=== PATIENT | female | born 1970 | race Caucasian/White ===

== ENCOUNTER 2018-01-18 09:27 | Emergency (ER) | payer OTHER ==
[~2018-01-18] VITALS: Ht 162.6 cm; Wt 116.0 kg
[~2018-01-18 09:27] MED LIST: LEVO200T PO; LISI-170 PO; OMEP-110 PO
[2018-01-18 09:37] VITALS: BP 166/88
[2018-01-18] MEDS ORDERED: METHOCARBAMOL 750 MG TABLET PO ONE (10:30)
[2018-01-18] MEDS ORDERED: KETOROLAC 30 MG/1 ML IM ONE (10:30)
[2018-01-18] MEDS ORDERED: KETOROLAC 30 MG/1 ML ONE (10:42)
[2018-01-18] MEDS ORDERED: METHOCARBAMOL 750 MG TABLET ONE (10:42)
[2018-01-18 10:44] LABS: BASOPHILS # (AUTO) 0.09 x10^3/uL (0-0.1); BASOPHILS % (AUTO) 1 % (0-1); EOSINOPHILS # (AUTO) 0.25 x10^3/uL (0-0.4); EOSINOPHILS % (AUTO) 2 % (1-7); LYMPHOCYTES # (AUTO) 2.37 x10^3/uL (1-3.4); LYMPHOCYTES % (AUTO) 21 % (22-44); MD NO; MEAN CORPUSCULAR HEMOGLOBIN 32.9 pg (27.0-34.8); MEAN CORPUSCULAR HGB CONC 34.1 g/dL (32.4-35.8); MEAN CORPUSCULAR VOLUME 96.4 fL (80-100); MEAN PLATELET VOLUME 9.3 fL (7.4-10.4); MONOCYTES # (AUTO) 0.48 x10^3/uL (0.2-0.8); MONOCYTES % (AUTO) 4 % (2-9); NEUTROPHILS # (AUTO) 8.09 x10^3/uL (1.8-6.8); NEUTROPHILS % (AUTO) 72 % (42-75); PLATELET COUNT 318 x10^3/uL (130-400); RED BLOOD COUNT 4.59 x10^6/uL (3.82-5.3); RED CELL DISTRIBUTION WIDTH 12.8 % (9.6-15.2)
[2018-01-18 10:56] LABS: ALBUMIN 3.9 g/dL (3.4-5.0); ANION GAP 8 mmol/L (5-15); CALCIUM 8.6 mg/dL (8.5-10.1); CHLORIDE 106 mmol/L (98-107); CREATININE 0.91 mg/dL (0.55-1.02)
== END 2018-01-18 11:33 | disposition home or self-care (01) ==
LOC: ED 11:30
DX: M54.41 Lumbago with sciatica, right side (principal); K21.9 Gastro-esophageal reflux disease without esophagitis; I10 Essential (primary) hypertension
CPT/HCPCS: 36415; 72110; 80048; 82040; 85025; 96372; 99285; J1885

== ENCOUNTER 2019-12-12 07:01 | Emergency (ER) | payer OTHER ==
[~2019-12-12] VITALS: Ht 160 cm; Wt 115.8 kg
--- NOTE | 2019-12-12 08:01 | NUR ---
CLINICAL QUALITY ASSURANCE ASSOCIATE: PT AMBULATORY WITH STEADY GAIT TO ROOM. PT GIVEN GOWN AND ASKED TO CHANGE. FRIENDS WITH PT,.
--- NOTE | 2019-12-12 08:09 | NUR ---
first contact with pt. pt C/O:"I have pneumonia, I was at [facility] on Thursday. They said to come back if my symptoms got worse. My symptoms got worse last night. I had flecked blood in my sputum last night." Pt is on albuterol, amoxicillin-clauvulanate, azithromycin, prednisone, promethazine-dextromethorphan. pt's aox4. resps even and unlabored. bp/spo2 monitors in place. call light within reach. family at bedside.
[2019-12-12] MEDS ORDERED: ACETAMINOPHEN 500 MG TABLET ONE (08:44)
--- NOTE | 2019-12-12 08:55 | NUR ---
piv est on L hand with no complications. pt tolerated well.
--- NOTE | 2019-12-12 08:57 | NUR ---
pt medicated per emar. pt tolerated well. ns infusing at this time.
[2019-12-12] MEDS ORDERED: ACETAMINOPHEN 500 MG TABLET PO ONE (09:00)
[2019-12-12] MEDS ORDERED: SODIUM CHLORIDE 0.9% 1,000ML IVBOLUS ONE (09:00)
[2019-12-12 09:21] LABS: BASOPHILS # (AUTO) 0.09 x10^3/uL (0-0.1); BASOPHILS % (AUTO) 1 % (0-1); EOSINOPHILS # (AUTO) 0.35 x10^3/uL (0-0.4); EOSINOPHILS % (AUTO) 4 % (1-7); LYMPHOCYTES # (AUTO) 1.34 x10^3/uL (1-3.4); LYMPHOCYTES % (AUTO) 14 % (22-44); MD NO; MEAN CORPUSCULAR HGB CONC 34.4 g/dL (32.4-35.8); MEAN PLATELET VOLUME 8.4 fL (7.4-10.4); MONOCYTES # (AUTO) 0.75 x10^3/uL (0.2-0.8); MONOCYTES % (AUTO) 8 % (2-9); NEUTROPHILS # (AUTO) 7.12 x10^3/uL (1.8-6.8); NEUTROPHILS % (AUTO) 74 % (42-75); PLATELET COUNT 342 x10^3/uL (130-400); RED BLOOD COUNT 4.02 x10^6/uL (3.82-5.3)
[2019-12-12 09:30] LABS: ALBUMIN 3.1 g/dL (3.4-5.0); ANION GAP 8 mmol/L (5-15); CALCIUM 8.7 mg/dL (8.5-10.1); CHLORIDE 106 mmol/L (98-107)
[2019-12-12] MEDS ORDERED: CEFTRIAXONE PMX 1GM/50ML 50 ML IV ONE (09:30)
[2019-12-12 09:31] LABS: CREATININE 0.73 mg/dL (0.55-1.02)
[2019-12-12 09:35] LABS: RAPID INFLUENZA A Negative (Negative)
[2019-12-12 09:36] LABS: RAPID INFLUENZA B Negative (Negative)
--- NOTE | 2019-12-12 09:44 | NUR ---
yoselin confilmed pt doesn't have allergy of cephalexin. pt states "i have nausea if i take it." yoselin ok'd to give abx.
[2019-12-12] MEDS ORDERED: CEFTRIAXONE PMX 1GM/50ML 50 ML ONE (09:46)
--- NOTE | 2019-12-12 09:51 | NUR ---
pt amb to br with steady gait.
--- NOTE | 2019-12-12 09:57 | NUR ---
abx infusing at this time after blood culture x 2. pt tolerated well.
[2019-12-12 11:00] VITALS: BP 128/67
--- NOTE | 2019-12-12 11:23 | NUR ---
Patient given discharge instructions and they have confirmed that they understand the instructions. Patient ambulatory with steady gait.
== END 2019-12-12 11:24 | disposition home or self-care (01) ==
LOC: ED 10:13
DX: J15.9 Unspecified bacterial pneumonia (principal); K21.9 Gastro-esophageal reflux disease without esophagitis; I10 Essential (primary) hypertension
CPT/HCPCS: 36415; 71046; 80048; 82040; 83605; 84145; 85025; 87040; 87400; 96365; 96366; 99284; J0696; J7030